=== PATIENT | male | born 1995 | race Asian ===

== ENCOUNTER 2019-09-28 22:22 | Emergency (ER) | payer OTHER, MEDICAID ==
[~2019-09-28] VITALS: Ht 162.6 cm; Wt 77.1 kg
[2019-09-28 22:40] VITALS: BP 146/100
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
--- NOTE | 2019-09-28 22:50 | NUR ---
AMA: SEE AMA FORM.
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
--- NOTE | 2019-09-28 23:12 | NUR ---
ED Nurse Note: Patient left AMA, stated that will go to urgent care tomorrow morning. AAO x4, VSS at this time, skin is dry warm to touch. Patient left with steady gait, with all belongings.
== END 2019-09-29 | disposition left against medical advice (07) ==
LOC: EMR 22:49
DX: Z53.21 Procedure and treatment not carried out due to patient leaving prior to being seen by health care provider (principal)